=== PATIENT | male | born 1975 | race Caucasian/White ===

== ENCOUNTER → 2017-08-24 | Outpatient (CLI) | payer OTHER ==
[~2017-08-24] MED LIST: MVI; NORCO 325 MG-7.1 TAB PO
== END ==
LOC: COL.VAS 12:25
DX: I36.1 Nonrheumatic tricuspid (valve) insufficiency (principal); I77.819 Aortic ectasia, unspecified site; Z82.49 Family history of ischemic heart disease and other diseases of the circulatory system

== ENCOUNTER → 2020-05-01 | Outpatient (CLI) | payer OTHER | LOC: ZCOL.LAB 06:37 | DX: Z20.828 Contact with and (suspected) exposure to other viral communicable diseases (principal) ==

== ENCOUNTER 2022-09-09 08:32 | Day surgery (SDC) | payer OTHER ==
[~2022-09-09] VITALS: Ht 177.8 cm; Wt 88.2 kg
[2022-09-09] MEDS ORDERED: ZOLOFT 100MG100 MG PO (09:11)
[2022-09-09] MEDS ORDERED: CHANTIX 1MG1 MG PO (09:11)
[2022-09-09 09:22] VITALS: BP 119/84; PULSE 84; TEMP 97
[2022-09-09 10:25] VITALS: BP 107/76; PULSE 82; TEMP 97.3
--- NOTE | 2022-09-09 10:33 | NUR ---
DR MARIN IN ROOM DISCUSSING PROCEDURE FINDINGS.
[2022-09-09 10:40] VITALS: BP 109/83; PULSE 82
--- NOTE | 2022-09-09 10:55 | NUR ---
1025-PT TO BAY 3 PER CART FROM ENDO ROOM. REPORT RECEIVED. VS OBTAINED. CALL LIGHT WITHIN REACH. PT TOLERATING JUICE AND MUFFIN. 1045-IV DC'D AT THIS TIME. 1050-DISCHARGE EDUCATION COMPLETED WITH PT AND HIS . VERBALIZED UNDERSTANDING OF HOME AND FOLLOW UP CARE. ALL QUESTIONS ANSWERED. DISCHARGE PAPERWORK GIVEN TO PT. 1055-PT OFF UNIT PER WHEELCHAIR. PT DISCHARGED TO HOME WITH PER PERSONAL VEHICLE.
== END 2022-09-09 10:55 | disposition home or self-care (01) ==
LOC: SDCO 08:32
DX: Z12.11 Encounter for screening for malignant neoplasm of colon (principal); D12.4 Benign neoplasm of descending colon; D12.5 Benign neoplasm of sigmoid colon
CPT/HCPCS: J2704; J7120